=== PATIENT | female | born 1945 | race Caucasian/White ===

== ENCOUNTER 2018-08-25 18:42 | Emergency (ER) | payer MEDICARE, BC ==
[~2018-08-25] VITALS: Ht 157.5 cm; Wt 78.0 kg
[2018-08-25 19:04] VITALS: BP 164/91
--- NOTE | 2018-08-25 19:10 | NUR ---
PT BEDSIDE REPORT FROM ROSEMARIE MONTEZ. THIS RN TO ASSUME CARE OF PT. PT RESTING COMFORTABLY ON GURNEY. CALL LIGHT WITHIN REACH. MD AT BEDSIDE FOR ASSESSMENT.
--- NOTE | 2018-08-25 19:20 | NUR ---
Patient seen by this RN in room 524 where she was visiting her spouse. Patient Financial Services Coordinator called a code 250 on the patient because she was oriented to self only, wandering in the unit, obviously agitated and self reporting nervousness. patient and her spouse endorse that her only medical history is memory loss, they deny alzheimer's and dementia. At this time MD Ventura has been to bedside, patient has been put on shoe maker and continuous pulse ox by this RN. VSS on room air. report has been given to TC Guajardo, he will assume care now. Call light in reach, bedrails up, patient has changed to gown and hospital socks. Patient is oriented to her name and birthday (not able to state age), she states the president is Jatinder, the year is 2011 and the season is spring. She cannot speak to the reason for her 's hospital stay. She has steadily stood and pivoted into and out of wheelchair.
[2018-08-25] MEDS ORDERED: SODIUM CHLORIDE FLUSH 10ML SYR IVF ONE (19:30)
[2018-08-25 19:46] LABS: BASOPHILS # (AUTO) 0.04 x10^3/uL (0-0.1); BASOPHILS % (AUTO) 1 % (0-1); EOSINOPHILS % (AUTO) 2 % (1-7); LYMPHOCYTES # (AUTO) 1.68 x10^3/uL (1-3.4); LYMPHOCYTES % (AUTO) 32 % (22-44); MD NO; MEAN CORPUSCULAR HGB CONC 33.7 g/dL (32.4-35.8); MEAN CORPUSCULAR VOLUME 100.8 fL (80-100); MONOCYTES # (AUTO) 0.71 x10^3/uL (0.2-0.8); MONOCYTES % (AUTO) 13 % (2-9); NEUTROPHILS # (AUTO) 2.74 x10^3/uL (1.8-6.8); NEUTROPHILS % (AUTO) 52 % (42-75); PLATELET COUNT 167 x10^3/uL (130-400); RED CELL DISTRIBUTION WIDTH 12.9 % (9.6-15.2)
--- NOTE | 2018-08-25 19:46 | NUR ---
PT REFUSING ANY FURTHER TESTING. STATES "I AM FINE. YOU CANT MAKE ME DO ANYTHING I DONT WANT TO DO." NOTIFIED. OK W/ NO FURTHER TESTING. PT EXPRESSING INTEREST IN WANTING TO LEAVE AND INFORMED OF LEGAL HOLD AGAIN AND WHAT THAT ENTAILS. PT IS VISIBLY UPSET. PT GIVEN WARM BLANKET FOR COMFORT. SITTER IN HALLWAY.
[2018-08-25 19:54] LABS: ALANINE AMINOTRANSFERASE 36 U/L (12-78); ALBUMIN 3.2 g/dL (3.4-5.0); ANION GAP 7 mmol/L (5-15); CALCIUM 8.4 mg/dL (8.5-10.1); CHLORIDE 110 mmol/L (98-107); CREATININE 0.94 mg/dL (0.55-1.02)
[2018-08-25 19:56] LABS: ALKALINE PHOSPHATASE 119 U/L (45-117); BILIRUBIN,TOTAL 2.1 mg/dL (0.2-1.0); TOTAL PROTEIN 6.6 g/dL (6.4-8.2)
[2018-08-25 20:01] LABS: ACETAMINOPHEN < 2 mcg/mL (10-30); SALICYLATE LEVEL < 1.7 mg/dL (2.8-20.0)
[2018-08-25] MEDS ORDERED: ZIPRASIDONE 20 MG INJ IM ONE ×2 (20:08→20:30)
--- NOTE | 2018-08-25 20:10 | NUR ---
PT BECOMING INCREASINGLY AGITATED AND STATING SHE IS GOING TO BE LEAVING AND REFUSES TO STAY. PT WONT ALLOW STAFF TO COME NEAR HERE AND VISIBLY UPSET. NOTIFIED. ORDERED 5 MG GEODON.
--- NOTE | 2018-08-25 20:22 | NUR ---
PT MEDICATED PER OCT. ALL BELONGINGS TAKEN AND PLACED IN 1 OF 1 BELONGINGS BAGS IN LOCKER. ATTEMPTING UA AT THIS TIME.
[2018-08-25] MEDS ORDERED: LIDOCAINE-MPF 1%, 5ML ONE (20:30)
[2018-08-25 20:41] LABS: CULTURE INDICATED? YES; MICROSCOPIC INDICATED
[2018-08-25 20:44] LABS: AMPHETAMINE SCREEN, URINE Negative (Negative); BARBITURATE SCREEN, URINE Negative (Negative); BENZODIAZEPINE SCREEN, URINE Negative (Negative); CANNABINOID SCREEN, URINE Negative (Negative); COCAINE SCREEN, URINE Negative (Negative); METHADONE SCREEN, URINE Negative (Negative); OPIATE SCREEN, URINE Negative (Negative)
--- NOTE | 2018-08-25 21:03 | NUR ---
PT RESTING COMFORTABLY ON GURNEY. RR EVEN AND UNLABORED. NADN. WATCHING TELEVISION. ROLLER DOORS IN PLACE. SITTER IN HALLWAY.
--- NOTE | 2018-08-25 21:13 | NUR ---
PACKET FAXED TO: [facility], [facility], [facility], [facility], [facility], AND [facility] AT THIS TIME; WILL AWAIT CONFIRMATION.
[2018-08-25] MEDS ORDERED: ONDANSETRON ODT 4 MG PO PRN (21:30)
[2018-08-25] MEDS ORDERED: ACETAMINOPHEN 325 MG TABLET PO PRN (21:30)
[2018-08-25] MEDS ORDERED: IBUPROFEN 600 MG TABLET PO PRN (21:30)
[2018-08-25] MEDS ORDERED: QUETIAPINE 25MG TABLET PO SCH (21:30)
--- NOTE | 2018-08-25 21:47 | NUR ---
TP RN: FAX COMPLETED CONFIRMTAION TO ALL ABOVE MENTIONED HOSPITIAL'S.
[2018-08-25] MEDS ORDERED: IBUPROFEN 200 MG TABLET PO PRN (23:30)
[2018-08-26] MEDS ORDERED: LEVO25TA4 PO (10:59)
[2018-08-26] MEDS ORDERED: DONE5TAB14 PO (10:59)
[2018-08-26] MEDS ORDERED: PARO10TA3 PO (10:59)
[2018-08-26] MEDS ORDERED: LOSA1TAB25 PO (10:59)
== END 2018-08-25 22:36 ==
LOC: ED 19:17 → EDIP 20:54 → UNDOADMOB 20:54 → INTOOBSV 21:05 → OBSVTOIN 21:05 → ED 22:36
DX: R41.82 Altered mental status, unspecified (principal); R07.9 Chest pain, unspecified; R06.02 Shortness of breath
CPT/HCPCS: 36415; 80053; 80307; 80329; 81001; 82140; 84443; 85025; 87086; 93005; 96372; 99284; J3486; G0480

== ENCOUNTER 2018-08-25 22:28 | Inpatient (IN) | payer MEDICARE, BC ==
[~2018-08-25] VITALS: Ht 154.9 cm; Wt 77.7 kg
[2018-08-25 23:00] VITALS: BP 165/93
[2018-08-25] MEDS ORDERED: DOCUSATE 100 MG CAPSULE PO PRN (23:00)
[2018-08-25] MEDS ORDERED: POLYETHYLENE GLYCOL 17 GM PACKET PO PRN (23:00)
[2018-08-25] MEDS ORDERED: BISACODYL 10 MG SUPP PR PRN (23:00)
[2018-08-25] MEDS ORDERED: ACETAMINOPHEN 325 MG TABLET PO PRN (23:00)
[2018-08-25] MEDS ORDERED: ONDANSETRON ODT 4 MG PO PRN (23:00)
[2018-08-25 23:26] LABS: HCT (SEDRATE) 45.4 % (34.6-47.8)
[2018-08-25] MEDS ORDERED: IBUPROFEN 200 MG TABLET PO PRN (23:30)
[2018-08-25 23:51] LABS: FREE T4 (FREE THYROXINE) 1.05 ng/dL (0.76-1.46); LDL/HDL RATIO 2.7 (0.5-3.0)
[2018-08-26 01:05] VITALS: BP 165/93
[2018-08-26 07:57] VITALS: BP 169/99
[2018-08-26] MEDS ORDERED: PARO10TA3 PO (10:59)
[2018-08-26] MEDS ORDERED: DONE5TAB14 PO (10:59)
[2018-08-26] MEDS ORDERED: LEVO25TA4 PO (10:59)
[2018-08-26] MEDS ORDERED: LOSA1TAB25 PO (10:59)
[2018-08-26 19:53] VITALS: BP 155/104
[2018-08-26] MEDS: DONEPEZIL 5 MG TABLET PO SCH ×2 (20:56→21:00)
[2018-08-26] MEDS: DIVALPROEX 125 MG CAP.SPRINK PO SCH (20:56)
[2018-08-26] MEDS: QUETIAPINE 25MG TABLET PO PRN (20:59)
[2018-08-27 07:26] VITALS: BP 170/110
[2018-08-27] MEDS: LOSARTAN 50MG TABLET PO SCH (08:17)
[2018-08-27] MEDS: DIVALPROEX 125 MG CAP.SPRINK PO SCH ×2 (08:17→19:56)
[2018-08-27] MEDS: HYDROCHLOROTHIAZIDE 12.5 MG CAPSULE PO SCH (08:18)
[2018-08-27] MEDS: PAROXETINE 10 MG TABLET PO SCH (08:18)
[2018-08-27] MEDS: LEVOTHYROXINE 25 MCG TABLET PO SCH (08:20)
[2018-08-27 09:02] VITALS: BP 139/90
[2018-08-27 19:31] VITALS: BP 121/82
[2018-08-27] MEDS: DONEPEZIL 5 MG TABLET PO SCH ×2 (19:56)
[2018-08-28] MEDS: LEVOTHYROXINE 25 MCG TABLET PO SCH (06:28)
[2018-08-28 07:28] VITALS: BP 147/81
[2018-08-28] MEDS: LOSARTAN 50MG TABLET PO SCH (08:35)
[2018-08-28] MEDS: HYDROCHLOROTHIAZIDE 12.5 MG CAPSULE PO SCH (08:35)
[2018-08-28] MEDS: DIVALPROEX 125 MG CAP.SPRINK PO SCH ×2 (08:35→20:04)
[2018-08-28] MEDS: PAROXETINE 10 MG TABLET PO SCH (08:36)
[2018-08-28 19:21] VITALS: BP 165/90
[2018-08-28] MEDS: DONEPEZIL 5 MG TABLET PO SCH ×2 (20:04)
[2018-08-28 20:07] VITALS: BP 149/78
[2018-08-29] MEDS: QUETIAPINE 25MG TABLET PO PRN (02:59)
[2018-08-29 07:15] VITALS: BP 124/72
[2018-08-29] MEDS: LEVOTHYROXINE 25 MCG TABLET PO SCH (08:26)
[2018-08-29] MEDS: DIVALPROEX 125 MG CAP.SPRINK PO SCH ×2 (08:26→20:38)
[2018-08-29] MEDS: HYDROCHLOROTHIAZIDE 12.5 MG CAPSULE PO SCH (08:26)
[2018-08-29] MEDS: LOSARTAN 50MG TABLET PO SCH (08:26)
[2018-08-29] MEDS: PAROXETINE 10 MG TABLET PO SCH (08:26)
[2018-08-29 19:29] VITALS: BP 126/81
[2018-08-29] MEDS: DONEPEZIL 5 MG TABLET PO SCH ×2 (20:37→20:42)
[2018-08-30] MEDS: LEVOTHYROXINE 25 MCG TABLET PO SCH (05:50)
[2018-08-30 07:45] VITALS: BP 139/89
[2018-08-30] MEDS: PAROXETINE 10 MG TABLET PO SCH (08:54)
[2018-08-30] MEDS: DIVALPROEX 125 MG CAP.SPRINK PO SCH ×2 (08:54→20:35)
[2018-08-30] MEDS: HYDROCHLOROTHIAZIDE 12.5 MG CAPSULE PO SCH (08:55)
[2018-08-30] MEDS: LOSARTAN 50MG TABLET PO SCH (08:55)
[2018-08-30 19:41] VITALS: BP 106/64
[2018-08-30] MEDS: DONEPEZIL 5 MG TABLET PO SCH ×2 (20:35→20:36)
[2018-08-31] MEDS: LEVOTHYROXINE 25 MCG TABLET PO SCH (05:51)
[2018-08-31 07:49] VITALS: BP 133/80
[2018-08-31] MEDS: HYDROCHLOROTHIAZIDE 12.5 MG CAPSULE PO SCH (08:32)
[2018-08-31] MEDS: DIVALPROEX 125 MG CAP.SPRINK PO SCH ×2 (08:32→20:42)
[2018-08-31] MEDS: PAROXETINE 10 MG TABLET PO SCH (08:32)
[2018-08-31] MEDS: LOSARTAN 50MG TABLET PO SCH (08:33)
[2018-08-31 20:01] VITALS: BP 122/83
[2018-08-31] MEDS: QUETIAPINE 25MG TABLET PO PRN (20:42)
[2018-08-31] MEDS: DONEPEZIL 5 MG TABLET PO SCH ×2 (20:42→21:00)
[2018-09-01] MEDS: LEVOTHYROXINE 25 MCG TABLET PO SCH (05:36)
[2018-09-01 07:35] VITALS: BP 113/73
[2018-09-01] MEDS: HYDROCHLOROTHIAZIDE 12.5 MG CAPSULE PO SCH (08:50)
[2018-09-01] MEDS: DIVALPROEX 125 MG CAP.SPRINK PO SCH ×2 (08:50→20:21)
[2018-09-01] MEDS: LOSARTAN 50MG TABLET PO SCH (08:51)
[2018-09-01] MEDS: PAROXETINE 10 MG TABLET PO SCH (08:51)
[2018-09-01] MEDS ORDERED: DONE5TAB52 PO (18:10)
[2018-09-01] MEDS ORDERED: QUET25TA PO (18:10)
[2018-09-01] MEDS ORDERED: LEVO25TA2 PO (18:10)
[2018-09-01] MEDS ORDERED: LOSA50TA2 PO (18:10)
[2018-09-01] MEDS ORDERED: PARO10TA3 PO (18:10)
[2018-09-01] MEDS ORDERED: DIVA125C2 PO (18:10)
[2018-09-01] MEDS ORDERED: HYDR12.517 PO (18:10)
[2018-09-01 19:15] VITALS: BP 106/72
[2018-09-01] MEDS: QUETIAPINE 25MG TABLET PO PRN (20:20)
[2018-09-01] MEDS: DONEPEZIL 5 MG TABLET PO SCH ×2 (20:21→20:23)
[2018-09-02 07:08] VITALS: BP 96/61
[2018-09-02] MEDS: LEVOTHYROXINE 25 MCG TABLET PO SCH (08:09)
[2018-09-02] MEDS: DIVALPROEX 125 MG CAP.SPRINK PO SCH (08:29)
[2018-09-02] MEDS: HYDROCHLOROTHIAZIDE 12.5 MG CAPSULE PO SCH (08:30)
[2018-09-02] MEDS: LOSARTAN 50MG TABLET PO SCH (08:30)
[2018-09-02] MEDS: PAROXETINE 10 MG TABLET PO SCH (08:30)
== END 2018-09-02 17:15 | DRG 57 ==
LOC: 3E 22:39
PROVIDERS: ADMIT Psychiatry & Neurology Psychosomatic Medicine; ATTEND Psychiatry & Neurology Psychosomatic Medicine
DX: G30.9 Alzheimer's disease, unspecified (principal); F02.81 Dementia in other diseases classified elsewhere, unspecified severity, with behavioral disturbance; F32.9 Major depressive disorder, single episode, unspecified; I11.9 Hypertensive heart disease without heart failure; E03.9 Hypothyroidism, unspecified; Z88.0 Allergy status to penicillin; Z88.5 Allergy status to narcotic agent; Z88.8 Allergy status to other drugs, medicaments and biological substances; Z79.899 Other long term (current) drug therapy; Z87.891 Personal history of nicotine dependence
CPT/HCPCS: 36415; 80061; 82607; 84439; 85651; 86480; 86592; 92523-GN